=== PATIENT | female | born 1935 | race Caucasian/White ===

== ENCOUNTER 2016-04-17 13:17 | Emergency (ER) | payer MEDICARE, OTHER ==
[2016-04-17 15:10] LABS: ABSOLUTE NEUTROPHIL COUNT 4.6 K/mm3 (1.8-7.7); BASO % 0.6 % (0.2-1.0); EOS % 0.4 % (0.9-2.9); HEMATOCRIT 39.8 % (37.0-47.0); HEMOGLOBIN 12.4 gm/l (12.0-16.0); IMM NEUT% 0.1 % (0-1); LYMPH # 1.8 (1.0-4.8); LYMPH % 25.5 % (15-45); MEAN CELL VOLUME 92.3 fl (81.0-99.0); MEAN CORPUSCULAR HEMOGLOBIN 28.8 pg (27.0-31.0); MEAN CORPUSCULAR HGB CONC 31.2 g/dl (33.0-37.0); MONO # 0.6 (0.0-0.8); MONO % 8.5 % (4-12); NEUT % 64.9 % (43-75); PLATELET COUNT 256 K/mm3 (130-400); RED CELL DISTRIBUTION WIDTH 14.7 % (11.5-14.5)
[2016-04-17 15:24] LABS: TROPONIN I 0.01 ng/ml (0.0-0.06)
[2016-04-17 15:28] LABS: CKMB ISOENZYME 1.9 ng/ml (0.6-6.3)
[2016-04-17 15:34] LABS: ALB/GLOB RATIO 1.2 (>1.0); ALBUMIN 3.2 gm/dL (3.5-5.7); CALCIUM 9.3 mg/dL (8.6-10.3)
== END 2016-04-17 16:40 | disposition home or self-care (01) ==
LOC: ED 13:17
DX: R00.2 Palpitations (principal); I44.4 Left anterior fascicular block